=== PATIENT | male | born 1985 | race Caucasian/White ===

== ENCOUNTER 2017-02-03 06:11 | Day surgery (SDC) | payer OTHER ==
[~2017-02-03] VITALS: Ht 186.7 cm; Wt 121.0 kg
[~2017-02-03 06:11] MED LIST: ESOM40CA PO; FLUO40CA2 PO; LANS30CA16 PO; LEVO500T33 PO; LORA10CA PO
[2017-02-03] MEDS ORDERED: LACTATED RINGERS 1,000 ML IV SCH ×2 (06:43→08:44)
[2017-02-03] MEDS ORDERED: IBUP400T PO (06:49)
[2017-02-03 06:50] VITALS: BP 162/98
[2017-02-03] MEDS ORDERED: BUPIVACAINE/PF-EPI 0.5% 1:200K ONE (06:56)
[2017-02-03] MEDS ORDERED: LIDOCAINE 1%, 2ML SQ PRN (07:00)
[2017-02-03] MEDS ORDERED: MIDAZOLAM 1 MG/ML, 2ML ONE ×2 (07:09→09:26)
[2017-02-03] MEDS ORDERED: FENTANYL PF 250 MCG/5ML ONE (07:09)
[2017-02-03] MEDS ORDERED: ONDANSETRON 2MG/ML, 2ML ONE ×2 (07:54→09:21)
[2017-02-03] MEDS ORDERED: GLYCOPYRROLATE 0.2MG/1ML ONE (07:54)
[2017-02-03] MEDS ORDERED: PROPOFOL 10 MG/ML, 20ML ONE (07:54)
[2017-02-03] MEDS ORDERED: ROCURONIUM 10 MG/ML ONE (07:54)
[2017-02-03] MEDS ORDERED: NEOSTIGMINE 1 MG/ML, 10ML ONE (07:54)
[2017-02-03] MEDS ORDERED: SUCCINYLCHOLINE 20 MG/ML, 10ML ONE (07:54)
[2017-02-03] MEDS ORDERED: CEFAZOLIN 1,000 MG ONE (07:54)
[2017-02-03] MEDS ORDERED: DEXAMETHASONE 4 MG/ML, 1ML ONE (07:54)
[2017-02-03] MEDS ORDERED: hydrALAzine 20 MG/ML, 1ML IV PRN (09:00)
[2017-02-03] MEDS ORDERED: OXYcodone 5 MG/5 ML ORAL.SOL UDC PO PRN (09:00)
[2017-02-03] MEDS ORDERED: ONDANSETRON 2MG/ML, 2ML IVPush PRN ×2 (09:00)
[2017-02-03] MEDS ORDERED: FENTANYL PF 100 MCG/2ML IV PRN (09:00)
[2017-02-03] MEDS ORDERED: LABETALOL 5MG/ML, 20ML IV PRN (09:00)
[2017-02-03] MEDS ORDERED: ACETAMINOPHEN 325 MG TABLET PO PRN (09:00)
[2017-02-03] MEDS ORDERED: METOCLOPRAMIDE 5 MG/ML, 2ML IV PRN (09:00)
[2017-02-03] MEDS ORDERED: morphine SULFATE 10 MG/ML, 1ML IVPush PRN (09:00)
[2017-02-03] MEDS ORDERED: HYDROmorphone 2 MG/ML, 1ML ONE (09:03)
[2017-02-03] MEDS ORDERED: OXYcodone 5 MG/5 ML ORAL.SOL UDC ONE (09:03)
[2017-02-03] MEDS ORDERED: ACETAMINOPHEN 650 MG/20.3 ML UDC ONE (09:03)
[2017-02-03] MEDS: HYDROmorphone 1 MG/ML, 1ML IV PRN ×4 (09:06→09:49)
[2017-02-03] MEDS ORDERED: MEPERIDINE/PF 25MG/0.5ML ONE (09:26)
[2017-02-03] MEDS ORDERED: MEPERIDINE/PF 25MG/0.5ML IVPush STA (09:28)
[2017-02-03] MEDS: HYDROcodone/APAP 5/325 TABLET PO PRN ×2 (14:35→18:43)
== END 2017-02-03 19:30 | disposition home or self-care (01) ==
LOC: OUT 06:11
PROVIDERS: ATTEND Surgery
DX: K82.4 Cholesterolosis of gallbladder (principal); K66.0 Peritoneal adhesions (postprocedural) (postinfection); Z88.0 Allergy status to penicillin; F41.9 Anxiety disorder, unspecified; F32.9 Major depressive disorder, single episode, unspecified; Z72.89 Other problems related to lifestyle; Z80.1 Family history of malignant neoplasm of trachea, bronchus and lung; Z80.3 Family history of malignant neoplasm of breast; Z82.0 Family history of epilepsy and other diseases of the nervous system; Z88.8 Allergy status to other drugs, medicaments and biological substances
CPT/HCPCS: 47562; 88304; J0330; J0690; J1100; J1170; J2175; J2405; J2704; J2710; J3010; J3490; J2250

== ENCOUNTER → 2017-05-03 | Outpatient (CLI) | payer OTHER ==
[~2017-05-03] MED LIST changes: +IBUP400T PO
== END | disposition home or self-care (01) ==
LOC: CFH 08:46
PROVIDERS: ATTEND Family Medicine
DX: R10.9 Unspecified abdominal pain (principal); R07.9 Chest pain, unspecified; G89.29 Other chronic pain
CPT/HCPCS: 76700

== ENCOUNTER 2018-10-11 11:39 | Emergency (ER) | payer OTHER ==
[~2018-10-11] VITALS: Ht 188 cm; Wt 127.0 kg
[~2018-10-11 11:39] MED LIST changes: +IBUP-1221 PO; -IBUP400T PO; -LANS30CA16 PO; +LANS30CA60 PO; -LEVO500T33 PO; +LEVO500T47 PO
[2018-10-11 11:43] VITALS: BP 167/76
[2018-10-11 13:05] LABS: BASOPHILS # (AUTO) 0.03 x10^3/uL (0-0.1); BASOPHILS % (AUTO) 0 % (0-1); EOSINOPHILS # (AUTO) 0.02 x10^3/uL (0-0.4); EOSINOPHILS % (AUTO) 0 % (1-7); LYMPHOCYTES # (AUTO) 0.64 x10^3/uL (1-3.4); LYMPHOCYTES % (AUTO) 8 % (22-44); MD NO; MEAN CORPUSCULAR HEMOGLOBIN 28.7 pg (27.5-34.5); MEAN CORPUSCULAR HGB CONC 34.3 g/dL (33.2-36.2); MEAN CORPUSCULAR VOLUME 83.8 fL (81-97); MEAN PLATELET VOLUME 8.9 fL (7.4-10.4); MONOCYTES # (AUTO) 1.04 x10^3/uL (0.2-0.8); MONOCYTES % (AUTO) 14 % (2-9); NEUTROPHILS # (AUTO) 6.01 x10^3/uL (1.8-6.8); NEUTROPHILS % (AUTO) 78 % (42-75); PLATELET COUNT 251 x10^3/uL (130-400); RED BLOOD COUNT 5.16 x10^6/uL (4.38-5.82); RED CELL DISTRIBUTION WIDTH 12.8 % (9.4-14.8)
[2018-10-11 13:18] LABS: ALANINE AMINOTRANSFERASE 17 U/L (12-78); ALBUMIN 4.1 g/dL (3.4-5.0); ANION GAP 10 mmol/L (5-15); CALCIUM 9.4 mg/dL (8.5-10.1); CHLORIDE 104 mmol/L (98-107)
[2018-10-11 13:20] LABS: ALKALINE PHOSPHATASE 73 U/L (45-117); BILIRUBIN,TOTAL 0.5 mg/dL (0.2-1.0); TOTAL PROTEIN 8.8 g/dL (6.4-8.2)
[2018-10-11 13:37] LABS: MICROSCOPIC NOT IND
[2018-10-11 13:40] LABS: CULTURE INDICATED? NO
[2018-10-11] MEDS ORDERED: KETOROLAC 30 MG/1 ML ONE ×2 (13:46→14:04)
[2018-10-11] MEDS ORDERED: ONDANSETRON 2MG/ML, 2ML ONE (13:46)
[2018-10-11] MEDS ORDERED: MORPHINE SULFATE 4 MG/ML, 1ML ONE (13:47)
[2018-10-11] MEDS ORDERED: KETOROLAC 30 MG/1 ML IVPush ONE (14:00)
[2018-10-11] MEDS ORDERED: ONDANSETRON 2MG/ML, 2ML IVPush ONE (14:00)
[2018-10-11] MEDS ORDERED: morphine SULFATE 10 MG/ML, 1ML IVPush ONE (14:00)
[2018-10-11] MEDS ORDERED: ONDANSETRON ODT 4 MG ONE (14:04)
--- NOTE | 2018-10-11 14:15 | NUR ---
REPORT FROM ROSA DOUGLAS. PT MEDICATED PER EMAR, 5 RIGHTS OBSERVED. PT UPDATED ON POC (MD ALFARO, PROB DC WITH FOLLOW UP). PT AND FAMILY DENY ANY QUESTIONS/CONCERNS
[2018-10-11] MEDS ORDERED: ONDANSETRON ODT 4 MG PO ONE (14:30)
[2018-10-11] MEDS ORDERED: KETOROLAC 30 MG/1 ML IM ONE (14:30)
[2018-10-11] MEDS ORDERED: HYDROcodone/APAP 5/325 TABLET ONE (14:34)
--- NOTE | 2018-10-11 14:55 | NUR ---
PT GIVEN SPINE OF NV AND GI MANUAL TESTER PHONE NUMBERS PER REQUEST TO ASSIST WITH HIS CONTINUITY OF CARE. PT DENIES ANY FURTHER NEEDS/CONCERNS UPON DC. GIVEN CRACKERS UPON DC PER REQUEST.
[2018-10-11] MEDS ORDERED: HYDROcodone/APAP 5/325 TABLET PO ONE (15:00)
== END 2018-10-11 14:57 | disposition home or self-care (01) ==
LOC: ED 14:39
DX: M54.5 Low back pain (principal); Z90.49 Acquired absence of other specified parts of digestive tract
CPT/HCPCS: 36415; 80053; 81003; 83690; 85025; 93005; 96372; 99284; J1885; Q0162